=== PATIENT | male | born 1955 | race Caucasian/White ===

== ENCOUNTER 2020-03-14 12:54 | Emergency (ER) | payer MEDICARE, BC ==
[~2020-03-14] VITALS: Ht 177.8 cm; Wt 88.5 kg
--- NOTE | 2020-03-14 13:11 | NUR ---
ED Nurse Note: pt presents to ED for monoclonal antibody infusion. pt states that he has COVID, tested positive on 03/10. pt denies any pain, feels malaise and fatigue. pt is noted to be saturating at 93% on RA, denies SOB.
[2020-03-14 13:16] VITALS: BP 117/82
[2020-03-14] MEDS ORDERED: Regeneron EUA 2,400 MG in NS 255 ML IVPB SCH (13:30)
[2020-03-14] MEDS ORDERED: Regeneron EUA MISC ONE (13:30)
[2020-03-14 13:32] LABS: HEMATOCRIT 42.3 % (42.0-52.0); HEMOGLOBIN 14.4 G/DL (14.2-18.0); MEAN CORPUSCULAR VOLUME 93 FL (80-99); PLATELET COUNT 136 K/UL (150-450); RED BLOOD COUNT 4.56 M/UL (4.70-6.10); RED CELL DISTRIBUTION WIDTH 11.7 % (11.6-14.8); WHITE BLOOD COUNT 3.4 K/UL (4.8-10.8)
[2020-03-14 13:54] LABS: ALANINE AMINOTRANSFERASE 20 U/L (12-78); ALBUMIN 3.5 G/DL (3.4-5.0); ALKALINE PHOSPHATASE 63 U/L (46-116); ASPARTATE AMINO TRANSFERASE 19 U/L (15-37); BILIRUBIN,TOTAL 0.6 MG/DL (0.2-1.0); BLOOD UREA NITROGEN 14 mg/dL (7-18); CALCIUM 8.4 MG/DL (8.5-10.1); CARBON DIOXIDE 28 MMOL/L (21-32)
--- NOTE | 2020-03-14 14:00 | NUR ---
ED Nurse Note: pt given fact sheet for [facility] at pt bedside explaining risks and benefits, pt consenting to medication at this time, still wishes to receive medication
--- NOTE | 2020-03-14 14:14 | Emergency Room Report ---
History of Present Illness General Chief Complaint: Flu Like Symptoms Source: Patient Present Illness HPI Disclaimer: Please note that this report is being documented using [employer] technology. This can lead to erroneous entry secondary to incorrect interpretation by the dictating instrument. HPI: 65-year-old male presents from home secondary to COVID-19 infection. He complains of generalized fatigue, body aches and decreased appetite. No shortness of breath nausea or vomiting. He tested positive on March 10. He is here requesting monoclonal antibody treatment. 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 COVID-19 Screening: Positive COVID-19 COVID-19 Testing Source: 03/10 Patient History Reviewed Nursing Documentation: PMH: Agreed; PSxH: Agreed Nursing Documentation-PMH Hx Hypertension: Yes Review of Systems All Other Systems: negative except mentioned in HPI Physical Exam Vital Signs Date Time Temp Pulse Resp B/P (MAP) Pulse Ox O2 Delivery O2 Flow Rate FiO2 03/14/20 13:02 99.1 85 18 117/82 (94) 93 Room Air Sp02 EP Interpretation: reviewed, normal General Appearance: well appearing, no apparent distress Head: normocephalic, atraumatic Eyes: bilateral eye PERRL, bilateral eye EOMI ENT: hearing grossly normal, moist mucus membranes Neck: full range of motion, supple Respiratory: lungs clear, normal breath sounds, no rhonchi, no respiratory distress, no retraction, no wheezing Cardiovascular #1: normal peripheral pulses, regular rate, rhythm, no murmur Gastrointestinal: non tender, soft, non-distended, no guarding Neurologic: alert, oriented x3, no focal defects Skin: normal color, warm/dry Medical Decision Making Diagnostic Impression: Primary Impression: COVID-19 ER Course Patient presents from home secondary to COVID-19 infection. He complains of generalized fatigue but denies any shortness of breath nausea or vomiting. He did test positive on the . After discussion with the patient we did give treatment with monoclonal antibody. Patient is 65 years of age. Regeneron was ordered and will plan to infuse. Signed out to oncoming physician to observe patient pre and post infusion. Last Vital Signs Date Time Temp Pulse Resp B/P (MAP) Pulse Ox O2 Delivery O2 Flow Rate FiO2 03/14/20 13:16 99.1 18 117/82 93 Room Air 03/14/20 13:16 85 Disposition: HOME, SELF-CARE Signed Out To: Roderick Barnhart M.D. Mar 14, 2020 14:14
[2020-03-14 14:15] LABS: CHLORIDE 101 MMOL/L (98-107); POTASSIUM 3.7 MMOL/L (3.5-5.1); SODIUM 136 MMOL/L (136-145)
[2020-03-14 14:16] LABS: ANION GAP 7 mmol/L (5-15)
--- NOTE | 2020-03-14 14:30 | NUR ---
ED Nurse Note: pt vitals at start of Regeneron: Hr: 71 SpO2: 95% BP: 125/72
[2020-03-14] MEDS ORDERED: insulin (14:52)
--- NOTE | 2020-03-14 15:15 | NUR ---
ED Nurse Note: pt continues to have Regneron infusing per pharmacy instruction. no adverse reaction noted. vital signs: HR: 77 SpO2: 97% BP: 133/77
--- NOTE | 2020-03-14 15:30 | NUR ---
ED Nurse Note: IV meds complete, no adverse reaction noted. VSS. will cont to monitor for 1 hour per protocol
--- NOTE | 2020-03-14 16:25 | NUR ---
ED Nurse Note: pt monitored for 1 hour post infusion, no adverse reaction noted, pt denies any symptoms of reaction. approved to be d/c by [facility]
[2020-03-14 16:28] VITALS: BP 117/82
--- NOTE | 2020-03-14 16:28 | NUR ---
ER DISCHARGE NOTE: Patient is cleared to be discharged per ERMD, pt is aox4, on room air, with stable vital signs. pt was given dc and prescription instructions, pt was able to verbalize understanding, pt id band and iv site removed without complications. pt is able to ambulate with steady gait. pt took all belongings.
== END 2020-03-14 16:30 | disposition home or self-care (01) ==
LOC: EMR 13:37
DX: U07.1 COVID-19 (principal); R53.83 Other fatigue; I10 Essential (primary) hypertension; Z88.8 Allergy status to other drugs, medicaments and biological substances
CPT/HCPCS: 36415; 80053; 85007; 85025; 96365; 99284; J7050; Q0243